=== PATIENT | female | born 1960 | race Caucasian/White ===

== ENCOUNTER 2023-11-11 15:07 | Emergency (ER) | payer OTHER, SELFPAY ==
[2023-11-11 15:08] VITALS: BP 169/78
[2023-11-11 15:28] LABS: % Basophils 0.9 % (0-2); % Eosinophils 1.4 % (0-6); % Immature Granulocytes 0.2 % (0-0.5); % Lymphocytes 31.9 % (20.5-51.1); % Monocytes 5.8 % (1.7-9.3); % Neutrophils 59.8 % (42.2-75.2); Absolute Basophils 0.1 10^3/uL (0-0.2); Absolute Eosinophils 0.1 10^3/uL (0-0.7); Absolute Monocytes 0.4 10^3/uL (0.1-0.6); Absolute Neutrophils 3.8 10^3/uL (1.4-6.5); Hematocrit 40.2 % (37.0-47.0); Hemoglobin 13.9 g/dL (12.0-16.0); Mean Corp Hgb Conc. 34.6 g/dL (33.0-37.0); Mean Corpuscular Hgb 30.1 pg (27.0-31.0); Mean Platelet Volume 9.9 fL (7.4-10.4); Nucleated Red Blood Cells % 0 %; Platelet Count 280 10^3/uL (130-400); Red Blood Cell Count 4.62 10^6/uL (4.20-5.40); Red Cell Dist. Width 12.3 % (11.5-14.5); White Blood Cell Count 6.4 10^3/uL (4.8-10.8)
[2023-11-11 16:02] LABS: ALT (SGPT) 318 U/L (0-35); AST (SGOT) 197 U/L (14-36); Albumin 4.8 g/dl (3.5-5.0); Alkaline Phosphatase 170 U/L (38-126); Blood Urea Nitrogen 18 mg/dl (7-17); Calcium 9.9 mg/dl (8.4-10.2); Carbon Dioxide 31 mmol/L (22-30); Chloride 100 mmol/L (98-107); Glucose 142 mg/dl (70-99); Potassium 4.8 mmol/L (3.5-5.1); Sodium 143 mmol/L (135-145); Total Bilirubin 0.6 mg/dl (0.2-1.3); Total Protein 7.6 g/dl (6.3-8.2); eGFR > 60.00
[2023-11-11 16:15] LABS: Lipase 178 U/L (23-300)
--- NOTE | 2023-11-11 17:47 | ED.GENMED ---
History of Present Illness
<Usha Sequeira PA-C - Last Filed: 11/12/23 01:24>
General
Chief Complaint: Abdominal Pain
Source: patient
Exam Limitations: none
Time Seen by Provider: 11/11/23 17:07
Nursing documentation reviewed up to this point in time: agreed with
History of Present Illness
History of Present Illness:
Patient is a 62-year-old female presenting to the emergency department with intermittent upper abdominal pain and elevated LFTs found on outpatient lab work. Patient reports intermittent upper abdominal pain associated with nausea over the past few
weeks becoming more frequent. Symptoms do seem to occur after eating. Patient denies any associated fevers, chills, vomiting. Patient was following with her primary provider regarding this intermittent discomfort who placed her on a course of a
PPI. She has been taking the Protonix for about 2 weeks now. She did have lab work performed outpatient few days ago which revealed elevated liver function. She was contacted by her primary care provider and told to go to the emergency department
given abnormal liver function.
Patient does also note an itchy rash in her epigastric region. She recently was treated with mupirocin for suspected impetigo of her nose.
Patient currently denies any pain or nausea.
Patient does report taking Wegovy for about 1.5 years although she did stop 6 months ago.
Review of Systems
<Usha Sequeira PA-C - Last Filed: 11/12/23 01:24>
Review of Systems
Allergies reviewed?: Yes
All Other Systems: ROS reviewed and negative except as documented in HPI and ROS
Phy Exam
<Usha Sequeira PA-C - Last Filed: 11/12/23 01:24>
Physical Exam
Physical Exam:
Vitals: Hypertensive, otherwise vital signs stable. Afebrile
General: Patient is well appearing, no acute distress. Nontoxic
Skin: Warm and dry. Linear erythematous papules in upper abdomen with few surrounding ecchymosis
Head: Normocephalic, atraumatic
Eyes: Sclera nonicteric. EOMs intact. No nystagmus.
Throat: Protecting airway
Neck: Normal ROM, no cervical spine tenderness, no meningismus
Cardiac: Regular rate and rhythm, no murmurs.
Pulm: Normal respiratory effort, no wheezes, rales, rhonchi heard on exam.
Abdomen: Abdomen soft and nontender. Negative Carbajal sign. No CVA tenderness.
Extremities: No evidence of cyanosis or edema. Great distal pulses
Neuro: AAOx3. CN II-XII intact. No focal neurologic deficits.
Psychiatric: Normal affect.
Course
<Usha Sequeira PA-C - Last Filed: 11/12/23 01:24>
Orders/Labs/Results
Orders:
Orders
11/11/23 15:18
Complete Blood Count/With Diff Urgent
Comprehensive Metabolic Panel Urgent
Lipase Urgent
11/11/23 17:31
US Abdomen Complete/Upper Urgent
Comment: elevated LFTs
Reason For Exam: Right upper quadrant/epigastric pain
Abnormal Lab Results
11/11/23
15:18
Carbon Dioxide 31 H mmol/L
(22-30)
BUN 18 H mg/dl
(7-17)
Glucose 142 H mg/dl
(70-99)
AST 197 H U/L
(14-36)
ALT 318 H U/L
(0-35)
Alkaline Phosphatase 170 H U/L
(38-126)
11/11/23 15:18
11/11/23 15:18
Vital Signs
Initial and Last Documented VS:
Initial Vital Signs
Temp Pulse Resp BP Pulse Ox
98.2 F 89 18 169/78 99
11/11/23 15:08 11/11/23 15:08 11/11/23 15:08 11/11/23 15:08 11/11/23 15:08
Last Documented Vital Signs
Temp Pulse Resp BP Pulse Ox
98.2 F 72 18 151/66 98
11/11/23 15:08 11/11/23 20:19 11/11/23 15:08 11/11/23 20:19 11/11/23 20:19
<Daniel Barrios DO - Last Filed: 11/11/23 19:58>
Orders/Labs/Results
Orders:
Orders
11/11/23 15:18
Complete Blood Count/With Diff Urgent
Comprehensive Metabolic Panel Urgent
Lipase Urgent
11/11/23 17:31
US Abdomen Complete/Upper Urgent
Comment: elevated LFTs
Reason For Exam: Right upper quadrant/epigastric pain
Abnormal Lab Results
11/11/23
15:18
Carbon Dioxide 31 H mmol/L
(22-30)
BUN 18 H mg/dl
(7-17)
Glucose 142 H mg/dl
(70-99)
AST 197 H U/L
(14-36)
ALT 318 H U/L
(0-35)
Alkaline Phosphatase 170 H U/L
(38-126)
11/11/23 15:18
11/11/23 15:18
Vital Signs
Initial and Last Documented VS:
Initial Vital Signs
Temp Pulse Resp BP Pulse Ox
98.2 F 89 18 169/78 99
11/11/23 15:08 11/11/23 15:08 11/11/23 15:08 11/11/23 15:08 11/11/23 15:08
Last Documented Vital Signs
Temp Pulse Resp BP Pulse Ox
98.2 F 72 18 151/66 98
11/11/23 15:08 11/11/23 20:19 11/11/23 15:08 11/11/23 20:19 11/11/23 20:19
<Usha Sequeira PA-C - Last Filed: 11/12/23 01:24>
MDM/Problems Addressed
Differential Diagnosis Includes:
Not limited to: Biliary colic, cholecystitis, choledocholithiasis, cholangitis, pancreatitis, GERD
MDM/Problems Addressed:
62-year-old female present with elevated LFTs found on outpatient lab work in setting of intermittent upper abdominal pain over the past few weeks. Pain is associated w/ nausea and seem to be postprandial in nature. Patient denies any fevers. No
vomiting or changes in bowel habits. Does also note an itchy rash in her epigastric region of abdomen. Patient mildly hypertensive on arrival, otherwise vital signs are stable. She is afebrile. Physical exam as above. Patient is very
well-appearing, in no apparent distress. She is nontoxic-appearing. She has no jaundice or scleral icterus. Abdomen is soft and nontender throughout all abdomen. Negative Carbajal sign. No CVA tenderness. There is an area of linear papules in
the epigastric region with surrounding excoriation and few ecchymoses. Patient in no distress or pain�declines analgesia at this time.
Labs were obtained in triage. CBC without any abnormalities. No leukocytosis. Chemistry does show transaminitis with an AST of 197, ALT of 318, alkaline phosphatase of 170. These values are mildly decreased from the labs that I reviewed
personally that she had drawn outpatient about 6 days ago. Lipase is normal. An ultrasound of the abdomen was obtained which shows cholelithiasis without any evidence of acute cholecystitis. Given patient is not tender, afebrile, with no
leukocytosis or evidence of cholecystitis on ultrasound�no indication for emergent cholecystectomy. I do suspect patient's intermittent pain and elevation in LFTs are related to gallstones. Did discuss with general surgeon on-call, Dr. Bashir who
will see patient next week for follow-up in office. Did discharge patient with lab slip for repeat LFTs drawn prior to general surgery follow-up. Do not suspect biliary obstruction.
I do believe that rash abdomen is unrelated and appears to be a poison mirna. Will send topical steroid for patient to use at home.
Otherwise�no indication for admission at this time. Patient stable for discharge with close return precautions, supportive care at home. Recommend NSAIDs for pain, low-fat diet. Patient will follow with general surgery next week. Return
precautions discussed at length. Patient seen with attending physician
Chronic conditions affecting care:
N/A
Acute Exacerbation and/or Progression of Chronic Illness:
N/A
<Usha Sequeira PA-C - Last Filed: 11/12/23 01:24>
*Radiology
Radiology exam reviewed: preliminary read by ED provider (Cholelithiasis) and radiology read reviewed
*Pulse Oximetry
Patient hypoxic: no
*EKG
Interpreted by ED Provider?: NA
*Senior Software Project Manager Interpretation
Rate: Senior Software Project Manager- N/A
*Critical Care Note
Total Time (30-74mins, 75-104mins- exclusive of procedures): Not Applicable
Data Reviewed
Review of Other/Old Records Reveals: Labs (Reviewed outpatient lab work performed last Wednesday including AST, ALT, alk phos)
<Usha Sequeira PA-C - Last Filed: 11/12/23 01:24>
Patient Management
Discussion with other providers: Hose Handler (Dr. Bashir-General Surgery)
ED Attending Note
<Usha Sequeira PA-C - Last Filed: 11/12/23 01:24>
-
Portions of this chart may have been created with voice recognition software.� Occasional wrong word or��sound alike� substitutions may have occurred due to the inherent limitations of voice recognition software.
<Daniel Barrios DO - Last Filed: 11/11/23 19:58>
ED Attending Note
Patient seen and examined by attending physician: Yes
I performed the substantive portion of visit, reviewed & personally made and approve the management plan that is documented in note by myself or CHUY.: Yes
ED Attending Note:
Patient is a 62-year-old female presents with intermittent right upper quadrant pain as well as a rash and midepigastric region. Patient's been having it for some time. Patient's primary care physician performed some labs and found her LFTs to be
elevated and sent the patient to the ER. Patient otherwise is feeling okay. Patient's had this intermittently for a few months. Patient states the pain seems to grab her in the mid epigastric region and sometimes goes to the back. Patient denies
fever or chills. Patient denies any nausea, vomiting or diarrhea at this time. Patient denies melena or hematochezia. Patient denies any chest pain or shortness of breath. Patient also noted a rash in the midepigastric region which was itchy.
Patient was given Keflex and mupirocin for it without any improvement. On physical exam the patient does not appear in any distress. Heart is regular lungs are clear. Abdomen is soft nontender. Patient does have a linear vesicular erythematous
rash in the mid epigastric that is covered with petechiae as well as ecchymosis. Patient's LFTs are elevated with the ALT being significantly more elevated than the AST. Bilirubin is normal. Alk phos is also elevated. Ultrasound shows
cholelithiasis without cholecystitis. I suspect that the patient's LFT elevation as well as pain is due to cholelithiasis. Patient will be referred to surgery. Believe the rash is poison mirna.
Discharge Plan
Departure
Patient Disposition: Home (Routine Discharge)
Date of Disposition: 11/11/23
Time of Disposition: 19:59
Patient with high blood pressure during this ER visit?: Yes
Condition: Good
Covid-19: Not Applicable
Discharge Problem:
Biliary colic, Elevated LFTs
Instructions: Gallstones (DC), Low-fat diet, BLOOD PRESSURE
Prescriptions:
New
ondansetron 4 mg tablet,disintegrating
4 mg PO Q8H PRN (Reason: nausea and vomiting) Qty: 10 0RF
betamethasone dipropionate 0.05 % ointment
1 applic topical BID Qty: 15 0RF
Rx Instructions:
to affected areas of body x 2 weeks; do not apply to face, axilla, or groin
Referrals:
Kehinde Bashir MD [Active] - Call in 1-3 days for appt
Madison Sheikh CRNP [Family Provider] -
Activity Restrictions/Additional Instructions:
Return to the emergency department with any fevers, chills, severe abdominal pain, intractable nausea/vomiting, severe back pain, worsening in current symptoms, or any other concerns
-You can take ibuprofen 600 mg every 8 hours as needed for severe abdominal pain. You can take Tylenol as needed for pain, as well. A prescription for Zofran has been sent to your pharmacy which you can take as needed for severe nausea/vomiting.
-A prescription for a topical steroid has been sent to your pharmacy. You can use this twice a day for the next 2 weeks to affected areas of body. You should not apply this to face, axilla, or groin
-You should follow-up with Dr. Bashir, general surgery, for further evaluation/management. I have given you a lab slip to have your liver function tests repeated next week prior to your follow-up with Dr. Bashir.
-Stay well-hydrated. Follow a low-fat diet.
Monitor your symptoms closely and return to the emergency department with any acute worsening/new symptoms
Interventions
Interventions:
*Risk Screen - Suicide Last Done: 11/11/23 15:08
*General Assessment Last Done: 11/11/23 15:08
*Neglect/Abuse Screening Last Done: 11/11/23 15:08
ED- Fall Risk Assessment Last Done: 11/11/23 20:19
*ED COVID-19 Vaccine History Last Done: 11/11/23 20:19
*Nursing Disposition Last Done: 11/11/23 20:19
[facility]av[facility]-Igixjiaxss Assessment Last Done: 11/11/23 17:55
Discharge Date and Time
Discharge Date/Time: 11/11/23 20:31
Print Language: SAMI
[2023-11-11 17:55] VITALS: BP 142/75; BMI 32.3
[2023-11-11 20:19] VITALS: BP 151/66
== END 2023-11-11 20:31 | disposition home or self-care (01) ==
LOC: EMR 15:07
PROVIDERS: Emergency Medicine; EMERGENCY PHYSICIAN Emergency Medicine; FAMILY PHYSICIAN Nurse Practitioner Adult Health
DX: K80.20 Calculus of gallbladder without cholecystitis without obstruction (principal); R11.0 Nausea; R10.13 Epigastric pain; R21 Rash and other nonspecific skin eruption; R94.5 Abnormal results of liver function studies; F31.9 Bipolar disorder, unspecified
CPT/HCPCS: 99284; 76700; 80053; 83690; 85025

== ENCOUNTER 2024-12-15 22:45 | Inpatient (IN) | payer OTHER, SELFPAY ==
[2024-12-15 16:26] VITALS: BP 134/82
[2024-12-15 16:48] LABS: Hematocrit 43.2 % (37.0-47.0); Hemoglobin 15.1 g/dL (12.0-16.0); Mean Corp Hgb Conc. 35.0 g/dL (33.0-37.0); Mean Corpuscular Volume 88.5 fL (81.0-99.0); Nucleated Red Blood Cells % 0 %; Platelet Count 242 10^3/uL (130-400); Red Cell Dist. Width 11.9 % (11.5-14.5)
[2024-12-15 17:04] LABS: ALT (SGPT) 499 U/L (0-35); AST (SGOT) 617 U/L (14-36); Albumin 4.7 g/dl (3.5-5.0); Alkaline Phosphatase 177 U/L (38-126); Blood Urea Nitrogen 12 mg/dl (7-17); Calcium 9.9 mg/dl (8.4-10.2); Carbon Dioxide 26 mmol/L (22-30); Chloride 104 mmol/L (98-107); Glucose 113 mg/dl (70-99); Potassium 4.5 mmol/L (3.5-5.1); Sodium 137 mmol/L (135-145); Total Protein 7.6 g/dl (6.3-8.2); eGFR > 60.00
[2024-12-15 17:32] LABS: Lipase > 4000 U/L (23-300)
[2024-12-15 20:24] VITALS: BP 146/71; BMI 28.9
--- NOTE | 2024-12-15 21:12 | ED.GENMED ---
History of Present Illness
General
Chief Complaint: Abdominal Symptoms
Source: patient
Time Seen by Provider: 12/15/24 20:23
History of Present Illness
History of Present Illness:
This patient is a 64-year-old female with a history of gallstones who presents emergency department with complaints of epigastric pain that started approximately 2 days ago and continues. Pain is in the epigastric area without radiation,
exacerbating, relieving factors. She notes associated feeling 'bloated'. She denies fever, chills, vomiting but she does feel nauseous. She denies chest pain, shortness of breath, lower abdominal pain, bleeding, new medications. Patient has a
known history of gallstones which she attributed to Wegovy use at that time and has not had that medication in over a year. She adheres to a low-fat diet. Her only other medication is Lamictal and Ativan as needed.
Past History
Past History
ED Past Medical History: Other (Gallstones)
ED Past Surgical History: Other (Breast reduction)
Social History
Tobacco: Non-smoker
Alcohol: Occasional
Drug: None
Phy Exam
Physical Exam
Physical Exam:
GENERAL: Alert , in no apparent distress
EYE: pupils equal and reactive
NECK: Supple, no significant adenopathy.
ENT: o/p clr, mmm.
CARDIAC: Regular rate and rhythm .
LUNGS: Clear breath sounds bilaterally, no acute respiratory distress, no wheezes/rales/rhonchi
ABDOMEN: Soft, mild tenderness, no r/g, no cvat
NEUROLOGICAL: Alert and oriented, no focal neuro deficits
SKIN: Warm and dry, skin intact.
MUSCULOSKELETAL: No edema, well perfused.
PSYCH: Normal and appropriate interaction.
Course
Orders/Labs/Results
Orders:
Orders
12/15/24 16:31
Complete Blood Count/With Diff Urgent
Comprehensive Metabolic Panel Urgent
Lipase Urgent
12/15/24 19:28
US Abdomen Complete/Upper Urgent
Comment:
Reason For Exam: pancreatitis, hx gallstones
12/15/24 21:15
Electrocardiogram (*1) Urgent
Reason for Study: Abdominal Pain
Cardiac Monitoring- Treatment ONCE
EKG- Treatment ONCE
0.9% Sodium Chloride 1000 ml [Nss] 1,000 ml IV BOLUS
Morphine Sulfate 2 mg IV NOW STA
Abnormal Lab Results
12/15/24
16:31
Absolute Neuts (auto) 7.9 H 10^3/uL
(1.4-6.5)
Absolute Lymphs (auto) 1.0 L 10^3/uL
(1.2-3.4)
Neutrophils % 82.2 H %
(42.2-75.2)
Lymphocytes % 10.6 L %
(20.5-51.1)
Glucose 113 H mg/dl
(70-99)
Total Bilirubin 2.9 H mg/dl
(0.2-1.3)
AST 617 H* U/L
(14-36)
ALT 499 H U/L
(0-35)
Alkaline Phosphatase 177 H U/L
(38-126)
Lipase > 4000 H* U/L
(23-300)
12/15/24 16:31
12/15/24 16:31
Vital Signs
Initial and Last Documented VS:
Initial Vital Signs
Temp Pulse Resp BP Pulse Ox
98.6 F 83 16 134/82 98
12/15/24 16:26 12/15/24 16:26 12/15/24 16:26 12/15/24 16:26 12/15/24 16:26
Last Documented Vital Signs
Temp Pulse Resp BP Pulse Ox
98.2 F 78 18 146/71 99
12/15/24 20:24 12/15/24 20:24 12/15/24 20:24 12/15/24 20:24 12/15/24 21:15
*Pulse Oximetry
SaO2: 99
Oxygen Mode of Delivery: Room air
Update Note
Update Note:
Patient presents to the Emergency Department with ___abdominal pain
Number and Complexity of Problems Addressed at the Encounter
� Chronic conditions affecting care:
� Acute Exacerbation and/or Progression of Chronic Illness:
� Differential Diagnosis includes: But not limited to cholecystitis, cholelithiasis, pancreatitis, obstructing stone, etc. etc. etc.
Amount and/or Complexity of Data to be Reviewed and Analyzed
� I performed an independent evaluation of and my interpretation is:
EKG:
CT:
Xrays:,
Laboratory Studies: Normal white blood cell count, Newly elevated LFTs associate with lipase greater than 4000
Other:us Cholelithiasis and gallbladder sludge.
Dilatation of the common bile duct measuring 10 mm diameter. Consider a follow-up MRCP or ERCP to evaluate for choledocholithiasis.
� Review of other/old records reveals:
� Clinical information was obtained by an independent historian:
� Prescriptions/Medications Considered but not given:
� Further testing considered but not performed:
Risk of Complications and/or Morbidity or Mortality of Patient Management
� Social determinants of health affecting care:
� Discussion with other providers (PCP, Hospitalists, Consultants, etc):
� Escalation of care including admission/observation vs risk of discharge considered: w/u c/w gallstone pancreatitis. Does nto have fever, leukocytosis, persistent pain, etc to suggest cholangitis. Will admit to hospitalist,
expect ERCP/MRCP/GI eval within next 24 hrs. Not septic, well appearing.
ED Attending Note
-
Portions of this chart may have been created with voice recognition software.� Occasional wrong word or��sound alike� substitutions may have occurred due to the inherent limitations of voice recognition software.
Discharge Plan
Departure
Patient Disposition: Admit
Date of Disposition: 12/15/24
Time of Disposition: 21:21
Presentation/result/management discussed w/ accepting MD/DO: Hospitalist
Condition: Fair
Discharge Problem:
Acute gallstone pancreatitis
Prescriptions:
No Action
No Current Medications
0
Referrals:
Madison Sheikh CRNP [Family Provider, General]
Interventions
Interventions:
*Risk Screen - Suicide Last Done: 12/15/24 16:26
*Neglect/Abuse Screening Last Done: 12/15/24 16:26
Discharge Date and Time
Print Language: HONG KONGER
[2024-12-15 21:24] VITALS: BP 155/68
[2024-12-15] MEDS: NSS 1000 IV (21:24)
[2024-12-15] MEDS: MORPHINE SULFATE 2 MG IV (21:25)
[2024-12-15 22:01] VITALS: BP 142/64
--- NOTE | 2024-12-15 22:38 | HPS.HSE ---
Family Physician
-
Family Physician: Madison Sheikh
Chief Complaint
-
Abdominal symptoms
History of Present Illness
This is a 64-year-old female with prior history of gallstones who presents with 3 days of epigastric pain and nausea.
She reports onset of epigastric pain that sometimes radiates to the back and increase in intensity over the last 3 days with nausea but no vomiting. She denies any other symptoms. She does report 1 episode of chills and denies any fevers or night
sweats. She reports that this is reminiscent of her prior history/episodes of biliary colic for which she was hospitalized about a little bit over a year ago. At that time she deferred any surgical intervention. She discontinued Wegovy and
attempted weight loss and low-fat diet.
She denies any alcohol use. She denies any current medications or supplements. She has no recent travels or sick contacts.
The Emergency Department patient was afebrile, blood pressure was 150/70 with a pulse of 78 satting 98% on room air.
CBC was unremarkable, electrolytes BUN and creatinine were all normal. LFTs were notable for AST of 617 ALT of 499 and alk phos that is slightly elevated. The total bilirubin was 2.9. Lipase was over 4000.
Ultrasound shows cholelithiasis and gallbladder sludge
Medical History
Past Medical History
Past Medical History: Reports Other (Gallstones)
Past Surgical History: Reports Other (Breast reduction)
Social History
Tobacco: Non-smoker
Alcohol: None
Drug: None
Living: Alone
Family History
Family History: Not pertinent
Allergies / Home Medications
Allergies reflects when Allergies were last updated in Maintenance Assistant.
Home Medications with original date entered in Maintenance Assistant
Allergy/Medication List:
Allergies
Allergy/AdvReac Type Severity Reaction Status Date / Time
NKA - No Known Allergies Allergy Unknown Uncoded 12/15/24 16:27
Home Medications
Patient takes no Meds 12/15/24
Review of Systems
-
Constitutional: Reports No Symptoms
EENT: Reports No Symptoms
Respiratory: Reports No Symptoms
Cardiac: Reports No Symptoms
Abdomen/GI: Reports Abdominal Pain and Nausea
: Reports No Symptoms
Musculoskeletal: Reports No Symptoms
Skin: Reports No Symptoms
Neurological: Reports No Symptoms
Endocrine: Reports No Symptoms
Hematologic/Lymphatic: Reports No Symptoms
Psych: Reports No Symptoms
Physical Exam
Vital Signs
Vital Signs
Temp Pulse Resp BP Pulse Ox
98.2 F 70 22 142/64 97
12/15/24 20:24 12/15/24 22:02 12/15/24 22:02 12/15/24 22:01 12/15/24 22:02
Physical Exam
General: Well Developed, Well Nourished and No Apparent Distress
HEENT: NormoCephalic, Moist mucous membranes and Atraumatic
Respiratory: Clear
Cardiac: S1/S2 and Regular Rhythm; No Murmur or Rub
GI: Soft, Non Tender, Non Distended and Normal Bowel Sounds; No Organomegaly
Rectal: Deferred by Provider
Musculoskeletal: No Clubbing, No Cyanosis and No Edema
Skin: No Rash
Neuro: AO x 3 and Nonfocal/grossly intact
Laboratory Results
-
12/15/24 16:31
12/15/24 16:31
Laboratory Results
Total Bilirubin 2.9 mg/dl (0.2-1.3) H 12/15/24 16:31
AST 617 U/L (14-36) H* 12/15/24 16:31
ALT 499 U/L (0-35) H 12/15/24 16:31
Alkaline Phosphatase 177 U/L (38-126) H 12/15/24 16:31
Lipase > 4000 U/L (23-300) H* 12/15/24 16:31
Data Reviewed
-
Ultrasound: Report Reviewed by me
Lab Data: Labs Reviewed by me
Old Records: Reviewed
Impression/Plan
-
IMPRESSION:
64-year-old female with prior history of gallstones presents to the emergency department with epigastric pain and was found to have elevated lipase LFTs and biliary stones with gallbladder sludge. Picture consistent with gallstone pancreatitis.
PLAN:
Gall stone pancreatitis -afebrile, hemodynamically stable, no acute cholecystitis. No evidence of cholangitis.
- Admit to [facility]
-N.p.o. for now
-Pain control antiemetics
-IV fluids
-MRCP
-If negative, surgical consult
DVT prophylaxis�Lovenox subcu
CODE STATUS�full code
[2024-12-15 23:00] VITALS: BP 140/61
[2024-12-16] VITALS: BP 131/64
[2024-12-16 00:27] VITALS: BP 145/81
[2024-12-16] MEDS: LR 1000 IV ×4 (00:51→23:04)
[2024-12-16] MEDS: TORADOL 10 MG IV ×2 (00:51→08:27)
[2024-12-16 07:18] VITALS: BP 108/70
[2024-12-16 08:42] LABS: Hematocrit 37.3 % (37.0-47.0); Hemoglobin 13.0 g/dL (12.0-16.0); Mean Corp Hgb Conc. 34.9 g/dL (33.0-37.0); Mean Corpuscular Volume 88.2 fL (81.0-99.0); Platelet Count 214 10^3/uL (130-400); Red Cell Dist. Width 12.3 % (11.5-14.5)
[2024-12-16 09:09] LABS: ALT (SGPT) 340 U/L (0-35); AST (SGOT) 214 U/L (14-36); Albumin 3.6 g/dl (3.5-5.0); Alkaline Phosphatase 147 U/L (38-126); Blood Urea Nitrogen 14 mg/dl (7-17); Calcium 8.9 mg/dl (8.4-10.2); Carbon Dioxide 31 mmol/L (22-30); Chloride 104 mmol/L (98-107); Estimated Creatinine Clearance 73 ml/min; Glucose 87 mg/dl (70-99); Potassium 4.7 mmol/L (3.5-5.1); Sodium 137 mmol/L (135-145); Total Protein 6.0 g/dl (6.3-8.2); eGFR > 60.00
[2024-12-16 10:37] LABS: HDL Cholesterol 54 mg/dl; LDL Cholesterol, Calculated 77 mg/dl; Very Low Density Lipoprotein 13 mg/dl (0-30)
--- NOTE | 2024-12-16 12:38 | W.PN.HOSP.TC ---
Today's Communication/Plan
-
await MRI
NPO
IVF
Assessment / Plan
Assessment / Plan
General: Well Developed, Well Nourished and No Apparent Distress
HEENT: NormoCephalic, Moist mucous membranes and Atraumatic
Respiratory: Clear
Cardiac: S1/S2 and Regular Rhythm; No Murmur or Rub
GI: Soft, Non Tender, Non Distended and Normal Bowel Sounds; No Organomegaly
Rectal: Deferred by Provider
Musculoskeletal: No Clubbing, No Cyanosis and No Edema
Skin: No Rash
Neuro: AO x 3 and Nonfocal/grossly intact
IMPRESSION:
64-year-old female with prior history of gallstones presents to the emergency department with epigastric pain and was found to have elevated lipase LFTs and biliary stones with gallbladder sludge. Picture consistent with gallstone pancreatitis.
PLAN:
Gall stone pancreatitis -afebrile, hemodynamically stable, no acute cholecystitis. No evidence of cholangitis.
Biliary colic.
-N.p.o. for now
-Pain control antiemetics
-IV fluids
-MRCP
-LFTs improving. Lipase pending. ?passed gallstone.
DVT prophylaxis�Lovenox subcu
CODE STATUS�full code
Anticipated Discharge: > 48 hours
Subjective/Interval History
-
Date of Service: December 16, 2024
states of abd bloating
not much abd pain today
Objective Data
-
Labs:
Laboratory Results
12/16/24
07:37
WBC 5.0
Hgb 13.0
Hct 37.3
Plt Count 214
Sodium 137
Potassium 4.7
Chloride 104
Carbon Dioxide 31 H
BUN 14
Creatinine 0.7
Glucose 87
Calcium 8.9
Total Bilirubin 1.2 D
AST 214 H
ALT 340 H
Alkaline Phosphatase 147 H
Vital Signs:
Vital Signs
Temp Pulse Resp BP Pulse Ox
98.9 F 60 16 108/70 97
12/16/24 07:18 12/16/24 07:18 12/16/24 07:18 12/16/24 07:18 12/16/24 07:18
I&O
12/15/24 12/16/24 12/17/24
06:59 06:59 06:59
Intake Total 1000 / 1000
Balance 1000 / 1000
--- NOTE | 2024-12-16 13:38 | CON.GS ---
Addendum entered and electronically signed by Blayne Deluna MD 12/16/24 15:50:
I saw and examined the patient.
The CHURNER's note was reviewed and I agree with the note.
Comment: Feeling much better, mildly ttp to epigastrium on exam, plan for CCY tomorrow with cholang
Original Note:
Consultation
-
Date/Time Consultation Performed: 12/16/24 1215
Medical History
-
Chief Complaint: abdominal pain
History of Present Illness:
Ms Frias is a 64 yo female with a h/o gallstones with prior episode of biliary colic in 2023 while on Wegovy for wt loss (loss of >40lbs) who presents with symptoms of epigastric pain in the evenings after dinner x3 days with worsening pain
across her upper abdomen and persistent discomfort yesterday causing her to present for evaluation. She notes associated nausea and no vomiting. She notes pain has improved and nearly resolved since presentation but still with mild discomfort across
her upper abdomen predominantly on the left. Very little tenderness on exam. She denies fevers or chills. She denies vomiting. She does note more 'neon' colored urine over the past day or so but notes she has not been drinking much fluid. After her
prior episode of biliary colic last year, she notes discontinuation of Wegovy. She did meet with a surgeon as an outpatient but decided to hold off on having cholecystectomy preformed at that time.
Past Medical History
Past Medical History: Other (cholelithiasis)
Past Surgical History: Other (breast reduction)
Social History
Tobacco: Non-Smoker
Alcohol: None
Employment: Employed (breakfast server at 2 restauraunts)
Family History
Family History: Reviewed & Not Pertinent
Allergies / Home Medications
Allergy/AdvReac Type Severity Reaction Status Date / Time
NKA - No Known Allergies Allergy Unknown Uncoded 12/15/24 16:27
�Medication �Instructions �Recorded �Confirmed �Type
No Meds [No Current Medications] 12/15/24 12/15/24 History
Review of Systems
-
History Source: Patient
All other systems: Negative unless noted
A 10 point review of systems was completed, and was negative except as per HPI.
Physical Exam
Vital Signs
Temp Pulse Resp BP Pulse Ox
98.9 F 60 16 108/70 97
12/16/24 07:18 12/16/24 07:18 12/16/24 07:18 12/16/24 07:18 12/16/24 07:18
12/15/24 12/16/24 12/17/24
06:59 06:59 06:59
Actual Weight 69.3 kg
Body Mass Index (BMI) 28.9
Lab Results
12/16/24 07:37
12/16/24 07:37
WBC 5.0 10^3/uL (4.8-10.8) 12/16/24 07:37
Hgb 13.0 g/dL (12.0-16.0) 12/16/24 07:37
Hct 37.3 % (37.0-47.0) 12/16/24 07:37
Plt Count 214 10^3/uL (130-400) 12/16/24 07:37
Abs Immat Gran (auto) 0.0 10^3/uL (0-0.05) 12/15/24 16:31
Neutrophils % 82.2 % (42.2-75.2) H 12/15/24 16:31
Physical Exam
General: Well Developed and Well Nourished
HEENT: Moist Mucous Membranes
Respiratory: Non Labored Respirations
GI: Soft, Non Distended and Tender (mild across upper abdomen l>r)
Skin: Warm and Dry; Negative Jaundice
Neuro: Awake, Alert and AO x 3
Psych: Calm
Data Reviewed
-
Ultrasound: Image Personally Visualized and interpreted, Report Reviewed by me, Discussed with Physician and Discussed with Patient
Labs: Labs Reviewed by me, Discussed with Physician and Discussed with Patient
Old Records: Reviewed
Assessment / Plan
-
64 yo female with a h/o gallstones presenting with gallstone pancreatitis. US with stones/sludge noted. Mild CBD dilatation. No evidence of cholecystitis. Bilirubin 2.9 on presentation now normalized to 1.2 with normal direct. Transaminitis present
and improving. Lipase >4K on presentation. Pain much improved/nearly resolved. Given improvement in labs, suspect passed stone. Afebrile. VSS. No leukocytosis.
Plan:
Ok to hold off on MRCP for now given improvement in labs
Trial of clears
Trend labs/exams
Discussed recommendation for cholecystectomy which can be preformed either as an inpatient vs as an outpatient on a scheduled basis. She will consider this and d/w family. Timing of OR TBD
[2024-12-16 15:22] VITALS: BP 154/67
[2024-12-16] MEDS: TYLENOL 650 MG PO (15:48)
[2024-12-16] MEDS: LOVENOX 40 MG SC (18:25)
[2024-12-16 23:00] VITALS: BP 143/68
[2024-12-17] VITALS (11 sets, daily range): BP systolic 122–159; BP diastolic 60–76
[2024-12-17] MEDS: LR 1000 IV (05:26)
[2024-12-17 08:35] LABS: Hematocrit 34.5 % (37.0-47.0); Hemoglobin 12.0 g/dL (12.0-16.0); Mean Corp Hgb Conc. 34.8 g/dL (33.0-37.0); Mean Corpuscular Volume 90.6 fL (81.0-99.0); Platelet Count 184 10^3/uL (130-400); Red Cell Dist. Width 12.0 % (11.5-14.5)
[2024-12-17 09:16] LABS: ALT (SGPT) 218 U/L (0-35); AST (SGOT) 90 U/L (14-36); Albumin 3.3 g/dl (3.5-5.0); Alkaline Phosphatase 121 U/L (38-126); Blood Urea Nitrogen 8 mg/dl (7-17); Calcium 8.6 mg/dl (8.4-10.2); Carbon Dioxide 28 mmol/L (22-30); Chloride 107 mmol/L (98-107); Estimated Creatinine Clearance 85 ml/min; Glucose 74 mg/dl (70-99); Potassium 4.2 mmol/L (3.5-5.1); Sodium 138 mmol/L (135-145); Total Protein 5.8 g/dl (6.3-8.2); eGFR > 60.00
[2024-12-17 09:30] LABS: Lipase 1842 U/L (23-300)
[2024-12-17] MEDS: DILAUDID 0.5 MG IV (11:02)
[2024-12-17] MEDS: ZOFRAN 4 MG IV (11:03)
--- NOTE | 2024-12-17 13:23 | W.PN.HOSP.TC ---
Addendum entered and electronically signed by Antoni Abel MD 12/17/24 16:30:
Discussed case with Dr. Deluna. Per surgery if patient is tolerating diet can be discharged home. Patient did well with a diet. Patient ambulating without difficulty. IV fluid discontinued. Patient to be discharged home.
More than 30 minutes spent in discharge including
Final examination of the patient
Summarizing hospital stay
Instructions for continuing care to all relevant caregivers
Preparation of discharge records, prescriptions, and referral forms
Total time spent (in minutes): 53
Original Note:
Today's Communication/Plan
-
Monitor for diet tolerance
Pain control
Surgery recs
Assessment / Plan
Assessment / Plan
General: Well Developed, Well Nourished and No Apparent Distress
HEENT: NormoCephalic, Moist mucous membranes and Atraumatic
Respiratory: Nonlabored respiration
GI: Soft, Non Tender, Non Distended and Normal Bowel Sounds; No Organomegaly
Rectal: Deferred by Provider
Musculoskeletal: No Clubbing, No Cyanosis and No Edema
Skin: No Rash
Neuro: AO x 3 and Nonfocal/grossly intact
IMPRESSION:
64-year-old female with prior history of gallstones presents to the emergency department with epigastric pain and was found to have elevated lipase LFTs and biliary stones with gallbladder sludge. Picture consistent with gallstone pancreatitis.
PLAN:
Gall stone pancreatitis -
Biliary colic.
Status post laparoscopic cholecystectomy. +/- IOC
Awaiting operative report
LFTs significantly improved
Diet restarted per surgery. DC fluids. Pain control. Monitor for nausea or vomiting.
Surgery further additional recommendations.
DVT prophylaxis�Lovenox subcu
CODE STATUS�full code
Anticipated Discharge: Within 24 hours
Subjective/Interval History
-
Date of Service: December 17, 2024
Seen postop
Currently resting in bed
States some some abdominal discomfort but no severe pain
Objective Data
-
Labs:
Laboratory Results
12/17/24
06:55
WBC 5.2
Hgb 12.0
Hct 34.5 L
Plt Count 184
Sodium 138
Potassium 4.2
Chloride 107
Carbon Dioxide 28
BUN 8
Creatinine 0.5 L
Glucose 74
Calcium 8.6
Total Bilirubin 0.9
AST 90 H
ALT 218 H
Alkaline Phosphatase 121
Vital Signs:
Vital Signs
Temp Pulse Resp BP Pulse Ox
97.8 F 67 18 151/68 95
12/17/24 11:45 12/17/24 11:45 12/17/24 11:45 12/17/24 11:45 12/17/24 11:45
I&O
12/16/24 12/17/24 12/18/24
06:59 06:59 06:59
Intake Total 1000 / 1000 2620 / 2620 200 / 200
Balance 1000 / 1000 2620 / 2620 200 / 200
--- NOTE | 2024-12-17 13:55 | W.IMMPOSTOP ---
Surgical Immed Post Op Note
-
Primary Surgeon: Mikie
Assisting Surgeon: Betty
Pre-op Diagnosis: Biliary pancreatitis
Post-op Diagnosis: Same
Procedure Performed: Robotic cholecystectomy with cholangiogram
Anesthesia Type: GETA
Specimen / Cultures: Gallbladder
Estimated Blood Loss: 10cc
Complications: None immediate
Operative Findings: Mild chronic inflammation about the gallbladder, filmy adhesions with colon in very close proximity released without touching the colon, minor spillage of bile but no stones; cholangiogram with good flow into duodenum,
opacification of biliary tree without filling defects
--- NOTE | 2024-12-17 14:01 | OR.RPT ---
Operative Report
Operative Report
Primary Surgeon: Mikie
Assisting Surgeon: Betty
Pre-op Diagnosis: Biliary pancreatitis
Post-op Diagnosis: Same
Procedure Performed: Robotic cholecystectomy with cholangiogram
Anesthesia Type: GETA
Specimen / Cultures: Gallbladder
Estimated Blood Loss: 10cc
Complications: None immediate
Operative Findings: Mild chronic inflammation about the gallbladder, filmy adhesions with colon in very close proximity released without touching the colon, minor spillage of bile but no stones; cholangiogram with good flow into duodenum,
opacification of biliary tree without filling defects
DOS: 12/17/24
Indications: This 64F developed right upper quadrant/epigastric pain and on workup was found to have cholelithiasis with elevated liver function studies. Laparoscopic cholecystectomy with robotic assist and cholangiogram was elected.
Description of procedure: The patient was placed on the operating table in the supine position. General anesthesia was induced. A time-out was completed verifying correct patient, procedure, site, positioning, and special equipment prior to
beginning this procedure. An orogastric tube was placed. The abdomen was prepped and draped in the usual sterile fashion. A stab incision was made in left upper quadrant and the Veress needle was inserted. Proper position was confirmed by aspiration
and saline meniscus test. The abdomen was insufflated with carbon dioxide to a pressure of 12 mmHg. The patient tolerated insufflation well.
An 8mm optical trocar was then inserted in the left upper quadrant. The laparoscope was inserted and the abdomen inspected. No injuries from initial trocar placement or Veress needle insertion were noted. Additional 8mm trocars were then inserted in
the following locations: above the umbilicus, right mid axillary line at the level of the umbilicus and 6cm lateral to this on the right. The abdomen was inspected and no abnormalities were found. The table was placed in the reverse Trendelenburg
position with the right side up. The dome of the gallbladder was grasped with an atraumatic grasper and retracted over the dome of the liver. The infundibulum was also grasped with an atraumatic grasper and retracted toward the right lower
quadrant. Some dense omental adhesions to the fundus and infundibulum were taken down. This maneuver exposed Calot�s triangle. The peritoneum overlying the gallbladder infundibulum was then incised and the cystic duct and cystic artery identified
and circumferentially dissected so that a clear view of the liver was achieved through a window between the cystic duct an cystic artery. This area had wall thickening and edema. At this time, the only two structures going into the gallbladder were
the cystic artery and cystic duct.
A harvinder was made in the abdominal wall and a cholangiogram catheter was passed into the abdomen. A harvinder was made in the cystic duct and the catheter was threaded into the duct and secured with 2-0 silk. A cholangiogram was obtained showing good flow
of contrast into the duodenum and opacification of the biliary tree without filling defects. the catheter was removed.
The cystic duct was then doubly clipped and divided and the and cystic artery was controlled with bipolar and divided. Both structures were taken close to the gallbladder. The gallbladder was then dissected from its peritoneal attachments by
electrocautery. Hemostasis was assured and the gallbladder and contained stones were removed using an endoscopic retrieval bag placed through the umbilical port. The gallbladder was passed off the table as a specimen. The gallbladder fossa was
irrigated with copious sterile saline and hemostasis was assured. There was no evidence of bleeding from the gallbladder fossa or cystic artery or leakage of the bile from the cystic duct stump. The umbilical trocar site was closed at the fascial
level laparoscopically with 2-0 PDS. Secondary trocars were removed under direct vision and noted to be hemostatic. The laparoscope was withdrawn and the umbilical trocar removed. The abdomen was allowed to collapse. The skin was closed with
subcuticular sutures of 4-0 monocryl and topical skin adhesive. The orogastric tube was removed.
The patient tolerated the procedure well and was taken to the postanesthesia care unit in stable condition.
--- NOTE | 2024-12-17 16:29 | W.DCSUMMARY ---
Discharge Summary
Discharge Data
Date of Admission: 12/15/24
Date of Discharge: 12/17/24
-
Pending Results: No
Hospital Course
64-year-old female with no significant past medical history is presenting with acute onset of right upper quadrant epigastric abdominal pain. Patient upon admission was found to have severe transaminitis and elevated lipase. Patient with suspected
acute gallstone pancreatitis. Ultrasound of the abdomen with cholelithiasis and gallbladder sludge. Patient was eval by general surgery. Patient underwent laparoscopic cholecystectomy with intraoperative cholangiogram. IOC was negative for CBD
obstruction. Postop patient did well and tolerated diet. Patient be discharged home with outpatient follow-up with general surgery.
Discharge Plan
-
Patient Disposition: Home (Routine Discharge)
Discharge Diagnosis/Procedures: Acute gallstone pancreatitis status post laparoscopic cholecystectomy and intraoperative cholangiogram
Diet: As tolerated
Additional Diets: Low fat diet if loose stools post op
Activity: No strenuous activity
Additional Activity: Do not lift over 20lbs for the next 2-3 weeks
Driving Restrictions: Avoid driving while on pain medication
Bathing Restrictions: OK to Shower
Blood Work: CMP in 1 to 2 weeks via primary doctor to assess for resolution of transaminitis
Wound Care: Allow the glue to flake off your incisions on its own over the next 2-3 weeks. Avoid scrubbing or picking off.
Call your surgeon if you have fevers >100.4, nausea with vomiting or worsening abdominal pain.
Instructions: Low-fat diet, Cholecystectomy (DC)
Referrals:
Blayne Deluna MD [Active, Surgical] - in two to four weeks
Madison Sheikh CRNP [Family Provider, General]
Prescriptions:
New
tramadol 50 mg Tablet
50 mg PO Q6HPRN PRN (Reason: mod-severe pain) Qty: 10 0RF
Discharge Orders:
Discharge Patient (As Directed); Ordered 12/17/24
Ordered By: Antoni Abel
Discharge Date and Time
Discharge Date/Time: 12/17/24 16:12
Print Language: LAO
== END 2024-12-17 16:12 | disposition home or self-care (01) | DRG 419 ==
LOC: 4 WEST ACU 22:45
PROVIDERS: Emergency Medicine; Registered Nurse; ADMITTING PHYSICIAN Internal Medicine; ATTENDING PHYSICIAN Hospitalist; CONSULT PHYSICIAN Surgery; EMERGENCY PHYSICIAN Emergency Medicine; FAMILY PHYSICIAN Nurse Practitioner Adult Health
PROC: 8E0W4CZ Robotic Assisted Procedure of Trunk Region, Percutaneous Endoscopic Approach (ICD-10-PCS; 2024-12-17)
PROC: 0FT44ZZ Resection of Gallbladder, Percutaneous Endoscopic Approach (ICD-10-PCS; 2024-12-17)
PROC: BF101ZZ Fluoroscopy of Bile Ducts using Low Osmolar Contrast (ICD-10-PCS; 2024-12-17)
DX: K85.10 Biliary acute pancreatitis without necrosis or infection (principal); Z90.49 Acquired absence of other specified parts of digestive tract; K80.20 Calculus of gallbladder without cholecystitis without obstruction; K66.0 Peritoneal adhesions (postprocedural) (postinfection)
CPT/HCPCS: 74300; 76000; 76700; 80053; 80061; 82248; 83690; 85025; 85027; 88304; 93005; 96361; 96374; 99285; A4300